=== PATIENT | female | born 1945 | race Caucasian/White ===

== ENCOUNTER 2019-11-03 05:51 | Inpatient (IN) | payer OTHER ==
[2019-11-03] MEDS ORDERED: WELLBUTRIN XL150 MG PO (06:10)
[2019-11-03] MEDS ORDERED: PROAIR HFA8.5 GM INH (06:10)
[2019-11-03] MEDS ORDERED: CLONAZEPAM 0.50.5 M1 PO (06:11)
[2019-11-03] MEDS ORDERED: DILTIAZEM ER120 MG PO (06:12)
[2019-11-03] MEDS ORDERED: NEXIUM40 MG PO (06:12)
[2019-11-03] MEDS ORDERED: LASIX 40 MG TAB40 MG PO (06:13)
[2019-11-03] MEDS ORDERED: FLONASE 0.05%50 MCG NASAL (06:13)
[2019-11-03] MEDS ORDERED: NEURONTIN 300300 M1 PO (06:14)
[2019-11-03] MEDS ORDERED: PROTONIX40 M2 PO (06:17)
[2019-11-03] MEDS ORDERED: ROXICODONE5 M2 PO (06:17)
[2019-11-03] MEDS ORDERED: KLOR-CON 10 ER10 MEQ PO (06:18)
[2019-11-03] MEDS ORDERED: MIRAPEX0.5 MG PO (06:19)
[2019-11-03] MEDS ORDERED: JANUMET XR 1001 EACH PO (06:20)
[2019-11-03] MEDS ORDERED: CARAFATE 1 GM TA1 GM PO (06:21)
[2019-11-03] MEDS ORDERED: RESTORIL15 MG PO (06:21)
[2019-11-03] MEDS ORDERED: ZANAFLEX4 M2 PO (06:22)
[2019-11-03] MEDS ORDERED: ANORO ELLIPTA1 EACH INH (06:23)
[2019-11-03 06:31] VITALS: BP 135/70
--- NOTE | 2019-11-03 07:09 | NUR ---
Patient arrived from [facility] ED via EMS. Patient calm, pleasant and cooperative. Patient had IV to right forearm which was removed. Patient educated and signed consents. Patient denies pain or discomfort. Vital signs assessed and weight checked. Patient gave tour of unit and notified of breakfast time. Patient had slept on and off throughout the night while at the ED so she is resting quietly in bed at this time. Personal belongings inventoried, med rec completed, allergies listed. Patient denies SI/HI/AH/VH. No paranoia or delusional behaviors observed. Patient able to ambulate from [facility] to her bed with steady gait and good balance.
--- NOTE | 2019-11-03 09:00 | NUR ---
Assumed care of patient this am. Patient in good spirits. Patient calm, content and pleasant. Patient denies pain. Patient denies hi/si. Patient ambulates without assistance. Patient takes meds whole with fluids. Patients assessment shows clear breath sounds, active bowel sounds, and s1 s2 heard with auscultation. Will continue to monitor.
[2019-11-03 16:43] LABS: TSH 0.885 uIU/mL (0.358-3.740)
[2019-11-03 19:30] VITALS: BP 111/51
[2019-11-03 23:08] LABS: HIV ANTIBODY Non Reactive (Non Reactive)
--- NOTE | 2019-11-03 23:31 | NUR ---
ASSUMED CARE ON 11/03/19 @ 19:15, IN BED WITH THE LIGHTS OFF. AWAKENED AT SHIFT CHANGE, AND SAID, WHY ARE YOU WAKING ME UP AGAIN? ORIENTED TO THIS NURSE AND TO THIS BEING THE FIRST TIME WE MET, AND THE TIME OF EVENING IT IS, SHE SAID WELL, IM TIRED AND DONT WANT TO BE WOKEN UP AGAIN. ORIENTED TO THE TIME SCHEDULT FOR HS MEDS, SHE RESPONDED IN A CRANKY WAY THAT ALL SHE WANTED TO DO WAS SLEEP. COOPERATED WITH ASSESSMENT AND HS MEDS WITH A GREAT DEAL OF COMPLAINT AND CRANKINESS. DENIES PAIN, HRRR, LUNGS DIMINISHED, ABD NORMOACTIVE REPORTS BM TODAY. IN BED, BED IN LOW POSIITON. WILL CONTINUE TO ROUND Q 12 MINUTES FOR PATIENT SAFETY.
[2019-11-03 23:38] VITALS: BP 111/51
--- NOTE | 2019-11-04 01:57 | NUR ---
PROVIDED PRN TEMAZEPAM 15 FOR INSOMNIA AND ACETAMINOPHEN 650 FOR GENERAL PAIN 02/03 @ 01:50.
--- NOTE | 2019-11-04 05:27 | NUR ---
SLEPT 11.2 HOURS OVERNIGHT
[2019-11-04 09:12] VITALS: BP 129/63
[2019-11-04 10:58] VITALS: BP 129/63
--- NOTE | 2019-11-04 13:23 | NUR ---
PATIENT HAS BEEN UP, AND OUT ON THE, AMBULATES WITH SLOW STEADY GAIT. PATIENT TOOK ALL MEDICATION WHOLE WITHOUT DIFFICULTY. PATIENT IS EATING MEALS, AND DRINKING FLUID WELL. PATIENT DENIES SUICIDAL/HOMICIDAL IDEATION. SHE DENIES AUDITORY/VISUAL HALLUCINATION. PATIENT IS CALM, COOPERATIVE WITH CARE. AFFECT IS DEPRESSED, MOOD IS PLEASANT, SHE DENIES HAVING PHYSICAL PAIN. NO SIGN OF ACUTE DISTRESS NOTED AT THIS TIME, CURRENTLY IN DAY ROOM TAKING OFF/ON NAP, WILL MONITOR FOR SAFETY.
[2019-11-04 20:54] VITALS: BP 149/69
--- NOTE | 2019-11-04 22:46 | NUR ---
ASSUMED CARE OF PATIENT AT 1915, PATIENT WAS IN BED DURING ONE TO ONE WITH THIS NURSE. AT FIRST PATIENT WAS IRRITABLE STATING 'IM TRYING TO SLEEP WHO ARE YOU?' THIS NURSE EXPLAINED WHO I WAS AND PATIENT CALMED AND WAS AGREEABLE. SHE APPEARS DISHEVELED WITH A FLAT AFFECT, SHE WOULD NOT ELABORATE ON FEELINGS EFFECTIVELY, BUT DID ADHERE TO MEDICATION REGIMEN PRESCRIBED. SHE DENIED SI HI FEELINGS OF DEPRESSION ET ANXIETY, HOWEVER AFFECT AND MOOD ARE INCONGRUENT. SHE DENIED MEDICAL CONCERNS WITH NO S/S OF DISTRESS. NURSING WILL MAINTAIN ALL PRECAUTIONS TO ENSURE SAFETY AT ALL TIMES.
[2019-11-05 06:21] LABS: ABSOLUTE NEUTROPHILS 2.9 thou/uL (1.4-8.2); EOSINOPHILS 4.2 % (0.0-3.0); HEMATOCRIT 40.4 % (37.0-47.0); HEMOGLOBIN 13.5 gm/dL (12.0-15.0); LYMPHOCYTES 28.5 % (24.0-44.0); MCH 29.5 pg (26.0-34.0); MCHC 33.4 g/dL (28.0-37.0); MCV 88.3 fL (80.0-100.0); MONOCYTES 6.9 % (1.0-8.0); PLATELET COUNT 168 thou/uL (150-400); POLYS 59.4 % (36.0-66.0); RBC 4.58 mil/uL (4.20-5.00); RDW 13.2 % (10.5-14.5); WBC 4.8 thou/uL (4.0-11.0)
[2019-11-05 07:09] LABS: ALBUMIN 3.6 g/dL (3.4-5.0); CALCIUM 9.2 mg/dL (8.5-10.1); CREATININE 0.8 mg/dL (0.6-1.0); MAGNESIUM 2.2 mg/dL (1.8-2.4); POTASSIUM 4.1 mmol/L (3.5-5.1); TOTAL BILIRUBIN 0.6 mg/dL (<0.1-1.0); TOTAL PROTEIN 7.7 g/dL (6.4-8.2)
[2019-11-05 07:37] VITALS: BP 144/39
--- NOTE | 2019-11-05 18:10 | H ---
[facility] [place] [address] HISTORY AND PHYSICAL Name: JOANNE VALVERDE Room #: 522B-B ADM IN M.R.#: [id number] Admission: 11/03/19 Attend Phys: Duke Foote DO Discharge: Date of : 49 Report #: [id number] THIS REPORT FOR: //name// CC: Duke Foote [facility] unknown DATE OF SERVICE: 11/03/2019 INPATIENT PSYCHIATRIC EVALUATION ATTENDING PHYSICIAN: Duke Foote DO. STRIPPER CUTTER MACHINE: Duke Navarro M.D. REASON FOR ADMISSION: Transfer from [facility], brought there by family due to increased confusion. Family reports that the patient has been not taking her medications and self-care, has declined. SOURCES OF INFORMATION: Hospital records. Interview with the patient and I left a voicemail with her son. HISTORY OF PRESENT ILLNESS: This is a 74-year-old female, BMI 85.774, apparently mildly obese. She presented to [facility] ED by family due to increased confusion, not taking medications, self-care decline. A psychiatric crm system administrator in [place] asked the account underwriter what brought to the ER, she stated "confusing." She denied thoughts of harm to self or others. Denied any history of suicidal attempts or self-harm. Reports losing her in 07/2019 a stressor. She was unable to identify a support system when asked, however, family was observed in the room. None history of psychiatric hospitalizations. PCP is Dr. Amando Gimenez. Denied auditory, visual, or tactile hallucinations. Denied paranoia. In the ER, she was unable to tell the date, vice president financial. Her daughter, Lalita Morris, wrote an affidavit. Her number is [phone]. She was concerned over the patient not showering, changing clothing or taking her medications. Affidavit goes on to say that the patient has a dog that has not been taking care of and has been letting street cats into her home. LABORATORY DATA: From the ER, sodium 137, potassium 3.9, chloride 103, bicarbonate 27, anion gap 7, calcium 8.9, glucose 159, total serum protein 7.3, albumin 3.9, alkaline phosphatase 82, alanine aminotransferase 23, aspartate aminotransferase 27, total bilirubin 0.4, BUN 24, creatinine 0.8, GFR female non- 71. White count 6.00, H and H 12.9 and 36, and platelet count 165. Urinalysis was grossly negative. ADDITIONAL INFORMATION: Daughter is a nurse practitioner at [employer] [facility] [employer] informs me the patient has gotten progressively worse after her , stopped [address] [address] HISTORY AND PHYSICAL Name: JOANNE VALVERDE Room #: 522B-B ADM IN M.R.#: [id number] Admission: 11/03/19 Attend Phys: Duke Foote DO Discharge: Date of : 49 Report #: [id number] taking care of herself and able to no longer care for her. She refuses to shower. She is not even feeding her own dog. The patient told the ER doc that it was 1972 and Samm was president. Interestingly, she told me the year was 1986. PAST MEDICAL HISTORY: Includes heart failure with preserved ejection fraction, acute respiratory failure from 11/2016 and 01/2019, aortic regurgitation 06/2018, cardiac pacemaker in situ 03/2009, combined heart failure 01/2017, chronic respiratory failure with hypercapnia 02/01/2019, cognitive impairment 12/2017, chronic obstructive lung disease 04/03/2014, complete heart block 2008 status post pacemaker, coronavirus infection 11/2016, diabetes mellitus type 2 in 08/2019, diabetic neuropathy with type 2 diabetes 12/2017, diverticulitis of large intestine 03/2014, elevated liver function tests 01/2019, GERD 01/2019, pulmonary embolism 2007, hypertrophic cardiomyopathy status post septal myectomy, imbalance 12/2017, mitral regurgitation 06/2018, nonalcoholic fatty liver disease 04/2016, restless leg syndrome 04/2016, RSV 11/2016, slow transit constipation 11/2016, diabetes mellitus 06/2005. PAST SURGICAL HISTORY: Knee arthroscopy, cardiac catheterization, cardiac pacemaker placement, CVL IVC filter placement and a venous ablation, insertion of pacemaker, septal myectomy, right 03/2013; rotator cuff repair, total hip replacement, and tubal ligation. FAMILY HISTORY: Coronary artery disease in mother, reports at age 55 colon cancer in mother, gallbladder disease in sister, diabetes mellitus in sister. SOCIAL HISTORY: Smoking status, 1 pack per day, years 57, [id number] smoker, start date 12/30/1965, quit date 11/2016. CT of the head was done, no acute intracranial process. It looks like B12, TSH, folate were not tested. REVIEW OF SYSTEMS: From visiting with the patient, she denied pain, nausea, vomiting or diarrhea. Otherwise, brief 10-point review of systems is negative. PHYSICAL EXAMINATION: GENERAL: In hospital gown, kyphotic, normal gait. MENTAL STATUS: This is a well-developed, ill-appearing female appearing older than stated age. Attention limited. Concentration limited. Speech is normal rate. Thought process linear and goal directed. Thought content, relative poverty of thought. No psychomotor agitation. No psychomotor retardation. Denied SI or HI. Denied auditory, visual, or tactile hallucinations. Memory tested with a [facility] Mental Status Examination, the patient scored 10/30 with gross amnestic deficits, interesting Geriatric Depression Scale 15 question Short form was done, it was 0 which is the best score can be. Insight impaired, judgment impaired. Fund of knowledge well below average. [facility] [address] [place] [address] HISTORY AND PHYSICAL Name: CANDELARIA VALVERDEEN Room #: 522B-B ADM IN ..#: [id number] Admission: 11/03/19 Attend Phys: Duke Foote DO Discharge: Date of : 49 Report #: [id number] FORMULATION: A 74-year-old obese female coming in for altered mental status. Initial tests look like this is a major neurocognitive disorder. DIAGNOSES: At this time, major neurocognitive disorder, likely Alzheimer's disease, possible vascular component with behavioral disturbance. Bereavement. Numerous medical problems including diabetes mellitus, hypertension, history of heart block, history of hypertrophic cardiomyopathy status post septal myectomy. PLAN: Evaluate, stabilize, obtain collateral. With regards to the patient's medications, potassium chloride 10 mEq p.o. daily ordered, Flonase 2 sprays each nostril daily ordered, diltiazem 120 mg p.o. daily ordered, tizanidine 4 mg p.o. b.i.d. ordered for muscle relaxation, gabapentin 300 mg p.o. b.i.d. ordered for neuropathy, sleep temazepam 15 mg ordered at bedtime, Mirapex 0.5 mg p.o. 3 times a day ordered. Other house PRNs. ESTIMATED LENGTH OF STAY: 10-14 days. Voicemail left for son, have not gotten additional collateral. STRENGTHS: She is insured, has supportive family. WEAKNESSES: Advancing age, likely an advanced dementia. <ELECTRONICALLY SIGNED> By: Duke Foote DO 11/05/19 1810 [id number] Duke Foote DO /nt
--- NOTE | 2019-11-05 18:23 | NUR ---
0715 ASSUMED CARE OF PATIENT. PATIENT IN BAD AT THIS TIME. 0820 MEDICATION TAKEN WHOLE WITHOUT DIFFICULTY. DENIES PAIN OR NEEDS AT THIS TIME. 1000 PATIENT IN ROOM SITTING ON BED. NO C/O PAIN, LUNG SOUNDS CLEAR, BS X4. PATIENT STATES WILL TAKE SHOWER LATER. DENIES SI/HI AND AUDIO AND VISUAL HALLUCINATIONS. PATIENT AMBULATING IN [place]ANA WITH STEADY GAIT. 1800 PATIENT IN SHOWER WITH ASSISTANCE OF NURSE PLASTICS
[2019-11-05 19:56] VITALS: BP 126/57
--- NOTE | 2019-11-05 21:22 | NUR ---
ASSUMED CARE AT 1915, PATIENT IN BED UPON ONE TO ONE WITH MEDICATION ADMINISTRATION, PATIENT ALERT AND ORIENTED X3 UPON ASSESSMENT. AGAIN, SHE WAS IRRITALBE UPON INITIAL ASSESSMENT, BUT CONVERSATION PROGRESSED SHE APPEARED WITH A BRIGHTER AFFECT. THIS NURSE EXPLAINED MEDICATION REGIMEN AND NEED FOR LOVENOX THERAPY TO WHICH PT STATED 'I USE TO TO HAVE TO TAKE THIS AT HOME.' SHE REPORTS FEELING 'GOOD' BUT 'BORED BECAUSE THERE IS NOTHING TO DO.' SHE DENIES SI HI SH WELL HALLUCINATIONS. SHE DENIED MEDICAL CONCERNS, INCLUDING PAIN AND DOES NOT APPEAR TO BE IN DISTRESS. THIS NURSE ENCOURAGED REGULAR MOVEMENT THROUGH UNIT AND PARTICIPATION. NURSING WILL MAINTAIN ALL PRECAUTIONS TO ENSURE SAFETY AT ALL TIMES.
--- NOTE | 2019-11-06 03:27 | NUR ---
PATIENT AWOKE AND CAME TO NURSE'S STATION AT 0300. SHE QUICKLY SAID SHE NEEDED SOME TOWELS BECAUSE SHE WAS GOING TO TAKE A SHOWER. I EXPLAINED THAT IT WAS 3AM. SHE STATES SHE COULDN'T SLEEP SO THOUGHT SHE WOULD GET UP. I SENT HER BACK TO HER ROOM AND TOLD HER I WOULD BE THERE IN A MINUTE. I WENT AND TOOK TOWELS AND WASH CLOTH TO HER ROOM. SHE WAS SITTING ON THE BED AND ASKED WHAT TIME IT WAS AGAIN. I TOLD HER THE TIME AND SHE DECIDED THAT SHE SHOULD SKIP THE SHOWER AND TRY AND SLEEP BUT SHE WANTED SOMETHING TO HELP HER SLEEP. THOUGH LATE, I WENT AHEAD AND GAVE HER THE PRN ORDER FOR TEMAZEPAM. PT TOOK MED AND THEN WE TALKED FOR A BIT. SHE IS PLEASANT AND COOPERATIVE AND SMILING APPROPRIATELY AT THINGS WE TALK ABOUT. SHE DISCUSSED HER GRIEF OF HER DYING BESIDE HER IN BED FROM A MASSIVE HEART ATTACK. SHE TALKED ABOUT THE EMS WORKERS COMING AND DOING CPR. SHE FEELS HER KIDS ARE BEING TOO OVERPROTECTIVE AND SAYS SHE IS JUST GRIEVING AND DEPRESSED AT TIMES D/T THE LOSS OF HER BUT NOTHING THAT ISN'T EXPECTED. SHE IS WANTING TO GO BACK TO HER HOME AND LIVE BY HERSELF BUT KIDS ARE WANTING HER TO LIVE WITH ONE OF THEM. SHE DID LAY DOWN. SHE IS RESTING NOW. SHE DENIES SI/HI. WILL CONTINUE TO MONITOR.
--- NOTE | 2019-11-06 05:02 | NUR ---
PATIENT AWOKE AND CAME TO NURSE STATION. SHE IS WIDE AWAKE. SHE SLEPT FOR 2 HOURS AFTER HAVING TEMAZEPAM. GAIT IS STEADY. PATIENT STATING SHE WOULD LIKE TO TAKE A SHOWER. PATIENT IS TAKING SHOWER AT THIS TIME AND WASHING HER HAIR. STATES SHE CAN'T SLEEP ANYMORE. MONITORING HER FOR SAFETY.
--- NOTE | 2019-11-06 07:30 | NUR ---
Assumed care of patient this am. Patient in good spirits, calm and cooperative. Patients affect flat. Patient ambulates with walker. Patient takes medications whole with fluids. Patient denies hi/si. Patient concerned about going home. Patients assessment shows clear breath sounds, active bowel sounds, and s1 s2 heard with auscultation.
[2019-11-06 08:00] VITALS: BP 118/65
[2019-11-06 09:04] VITALS: BP 118/65
--- NOTE | 2019-11-06 11:18 | NUR ---
BHAVIN confirmed that Eduardo and his sister Lalita will be attending pt's family meeting tomorrow.
[2019-11-06 16:07] LABS: SYPHILIS AB Non Reactive (Non Reactive)
[2019-11-06 20:15] VITALS: BP 131/67
[2019-11-06 21:30] VITALS: BP 131/67
--- NOTE | 2019-11-07 05:28 | NUR ---
11/06/19 @ 2130 Pt. is alert and oriented x 4. Affect bright. Patient is calm and cooperative. No SI/HI/AH/VH reported. No s/s of delusional or paranoid behaviors. Meds taken whole with thin liquids. No choking or coughing noted with thin liquids. Pt. denies pain and no s/s of distress noted.
[2019-11-07 07:35] VITALS: BP 127/64
--- NOTE | 2019-11-07 16:25 | NUR ---
SW attended a family meeting with pt's daughter Lalita, psych doctor and pt. Placement options were discussed; although pt does not want to go to placement she understands that it may be necessary; it also may be a short term placement as her cognition issues may have been brought on by grief. SW team will continue to follow pt during her stay on this unit.
--- NOTE | 2019-11-07 17:47 | NUR ---
BHAVIN received a VM from [email or web address] and theya re asking that a DPOA be established and faxed to them. BHAVIN reported this to the SW team to be completed in my absence tomorrow 11/08
[2019-11-07 20:00] VITALS: BP 159/81
--- NOTE | 2019-11-07 20:19 | NUR ---
Alert and orientated X4. Conversive with peers and staff. Denies SI/HI, pain. Breath sounds clear t/o. Reg HR auscultated. Color pink with brisk capillary refill and palpable peripheral pulses. Independent with voiding. Active bowel sounds over large, soft, rounded abdomen. [place], healing area under L breast. Red, excoriated areas under stomach fold and groin. Dr. Kinney here examining pt. Ketaconazole cream ordered to groin and stomach in addition to breast.
--- NOTE | 2019-11-07 23:48 | NUR ---
ASSUMED CARE ON 11/07/19 @ 19:20, IN THE DAY ROOM, SOCIALIZING WITH PEERS. REPORTS THAT DOES NOT TO TAKE TRAZADONE FOR SLEEP SHE HAD VISUAL HALLUCINATIONS OF BUGS LAST NOC WHEN SHE TOOK IT. DENIES AH AND VH TODAY, DENIES SI AND HI. COOPERATED WITH ASSESSMENT, HRRR, LUNGS CTA, ABD N X 4 Q OVER A ROUND ABDOMEN. REPORTS PAIN IN THE NECK, WELL THE BREAST AND THIGHS. REFUSED TYLENOL 650. ORDER OBTAINED FOR IBU 400 FOR A ONE TIME ORDER. PROVIDED FOR 5/10 PAIN IN THE NECK. KETACONAZOLE CREAM APPLIED TO BREAST, GROIN AND ABD FOLD FOR REDNESS. RELIEF NOTED PATIENT IS SLEEPING UPON FOLLOW UP ASSESSMENT. BED IN LOW POSITION, WILL CONTINUE TO MONITOR Q 12 MINUTES FOR PATIENT SAFETY.
[2019-11-08 02:32] VITALS: BP 159/81
--- NOTE | 2019-11-08 06:03 | NUR ---
slept 6 hours overnight
--- NOTE | 2019-11-08 07:30 | NUR ---
Assumed care of patient this am. Patient in good spirits. Patient has a broad affect. Patient takes medications whole with fluids. Patient ambulates with walker. Patient denies hi/si. Patient denies pain. Patients assessment shows clear breath sounds, active bowel sounds, and s1 s2 heard with auscultation.
[2019-11-08 08:00] VITALS: BP 143/67
[2019-11-08 09:02] VITALS: BP 143/67
--- NOTE | 2019-11-08 11:34 | NUR ---
BHAVIN and the industrial controls technician completed an advanced directive with pt. She has designated her son Eduardo as #1 and daughter Lalita as #2. SW team will continue to follow pt during her stay on this unit.
--- NOTE | 2019-11-08 14:49 | NUR ---
SW received a msg from [facility] stating that they cannot take pt due to her insurance being out of network. SW provided an update to pt's psych doctor who then called pt's son and daughter. SW team will continue to follow pt during her stay on this unit.
[2019-11-08 19:47] VITALS: BP 135/69
[2019-11-08 22:06] VITALS: BP 135/69
--- NOTE | 2019-11-09 02:42 | NUR ---
1430 AM RESUMMED CARE FROM DAY SHIFT, PATIENT IN DAY ROOM INTERACTING WITH PATIENTS. PATIENT CALM COOPERATIVE TOOK MEDICATION WITHOUT INCIDENCE. PATIENT DENIES SI/HI NO HALLUCINATIONS AT PRESENT. WILL CONTINUE TO MONITOR PATIENT FOR SAFETY AND BEHAVIORS.
[2019-11-09 08:00] VITALS: BP 137/67
--- NOTE | 2019-11-09 09:56 | NUR ---
BHAVIN spoke with Lalita [phone]. And she asked to send the referral to [facility] ( they do not have any beds unitl next week). Bhavin sent the referal to [facility]. Still waiting for pt and ot notes
--- NOTE | 2019-11-09 11:14 | NUR ---
[facility] is working getting auth and are waiting for pt and ot notes. They asked for DX codes for rehab. Sw will communicate with therapy and get those as needed. If auth is completed pt could d/c to [facility] for rehab by tomorrow.
--- NOTE | 2019-11-09 11:22 | EKG ---
[facility] [place] [address] ELECTROCARDIOGRAM REPORT Name: JOANNE VALVERDE Room #: 520A-A ADM IN M.R.#: [id number] Admission: 11/03/19 Attend Phys: Duke Foote DO Discharge: Date of : 49 Report #: [id number] THIS REPORT FOR: cc: FAM - Family physician unknown FAM - Family physician unknown Paul Nash MD ~ THIS REPORT FOR: //name// [facility] Test Date: 2019-11-06 Test Time: 11:10:26 Pat Name: JAONNE VALVERDE Department: Room: [facility] B Gender: F Systems Test Analyst: Fabrice ROSEN : 1945 Requested By: Duke Fooet Order Number: [id number] MD: Paul Nash Measurements Intervals [place]or Rate: 71 P: 66 ND: 171 QRS: -67 QRSD: 149 T: 124 QT: 462 QTc: 503 Interpretive Statements Atrial-ventricular dual-paced rhythm No further analysis attempted due to paced rhythm No previous ECG available for comparison Electronically Signed On 11-06-2019 16:52:57 CORRUGATOR by Paul Nash [email or web address] <ELECTRONICALLY SIGNED> By: Paul Nash MD 11/06/19 1652 1110 1110 Paul Nash MD /EPI
[2019-11-09 13:16] VITALS: BP 137/67
--- NOTE | 2019-11-09 15:47 | NUR ---
Sw spoke with pt's brother and reported the d/c planning efforts. SW waiting for pt/ot notes to complete the referral.
[2019-11-09 19:30] VITALS: BP 146/59
--- NOTE | 2019-11-09 19:31 | NUR ---
Assumed care of patient this am. Patient in good spirits. Patient denies pain. Patient denies hi/si. Patients affect is soft and normal. Patient ambulates without assistance. Patient takes medications whole. Patients assessment shows clear breath sounds, active bowel sounds, and s1 s2 heard with auscultation. Patient states that she is afraid of one of the male patients. We will continue to monitor.
--- NOTE | 2019-11-10 01:03 | NUR ---
Care assumed of patient at 1915: Patient seated in dayroom at start of shift. Patient alert and oriented x3, disoriented on current situation. Patient did state that she is waiting to be discharged to a [facility] facility for rehab. Patient also reporting that she has quit smoking and is proud about that. Patient calm, pleasant and cooperative. Denies pain or discomfort. Denies SI/HI/AH/VH. No delusional or paranoia behaviors observed. Denies anxiety and depression. Patient took HS medication whole without difficulty. Originally declined HS snack and reported that she wanted to retire to bed. However, patient presented to the nurses station later and reported that her blood sugar was "dropping again". Blood sugar assessed, WNL. Patient was provided zoe crackers per her request and ate 100%. Medical record reviewed and discrepancy noted in blood sugars being monitored. TIFFANIE Guy notified. Orders obtained for Accucheck ACHS, Hypoglycemic protocol and Hgb A1C for the AM. Patient has been able to rest quietly since receiving HS snack.
[2019-11-10 08:42] VITALS: BP 137/67
--- NOTE | 2019-11-10 11:34 | NUR ---
OBSERVED TO BE CARETAKING OF PEER GROUP-FEEDING OTHER PATIENTS,ATTEMPTING TO REASSURE A FEMALE ON UNIT CRISTIAN IS MISSING HER ,TELLING ANOTHER PEER "STOP YPUR WHINING NO ONE WANTS TO HEAR THAT" DYSPHORIC MOOD. DENIES SI/SH/HI. DENIES C/O PHYSICAL DISCOMFORT. GAIT STEADY WITHOUT ASSISTIVE DEVICES.
--- NOTE | 2019-11-10 14:24 | NUR ---
BHAVIN got an update from [facility] and pt has been accepted for skilled days. Bhavin then speokw with Lalita mary anne ahumadazulma sated that her brother was going to pick pt up and take her to [facility] for rehab. Bhavin spoke with [facility] and confirmed. Bhavin made packet and sent meds list included DA 124 C and DPOA with d/c summary and orders FAXED.
[2019-11-10] MEDS ORDERED: IPRAT-ALBUT 0.5-3 ML INH (14:39)
[2019-11-10] MEDS ORDERED: CLONAZEPAM 0.50.5 M1 PO (14:40)
[2019-11-10] MEDS ORDERED: VITAMIN D21250 MC1 PO (14:41)
[2019-11-10] MEDS ORDERED: ZOLOFT25 MG PO (14:41)
[2019-11-10] MEDS ORDERED: KETOCONAZOLE15 GM TOP (14:41)
[2019-11-10] MEDS ORDERED: PROTONIX40 M1 PO (14:42)
[2019-11-10] MEDS ORDERED: GLUCOPHAGE500 MG PO (14:42)
[2019-11-10] MEDS ORDERED: CARAFATE 1 GM TA1 GM PO (14:42)
[2019-11-10] MEDS ORDERED: MIRALAX17 GM PO (14:42)
[2019-11-10] MEDS ORDERED: MILK OF MA2400 MG/11 PO (14:43)
--- NOTE | 2019-11-10 15:13 | NUR ---
REPORT CALLED TO SRAVANTHI AT [facility] AT APPROX 1400-DISCHARGE INSTRUCTIONS REVIEWED WITH PATIENT AND SON AND COPIES OF DC MEDS AND INSTRUCTIONS ALONG WITH RX IN PACKET AND SENT TO FACILITY. DISCHARGED WITH PERSONAL BELONGINGS ACCOMPNIED BY SON BHARAT TO PRIVATE VEHICLE. UP IN MOOD AT TIME OF DC SMILING AND STATING SHE IS EXCITED TO SEE HER DOG. DENIES ACUTE ANXIETY/SI/SH/HI AT TIME OF DC. NO NOTED OR REPORTED PSYCHOSIS.
[2019-11-13 01:10] LABS: GLYCOHEMOGLOBIN (HGB A1C) 5.8 % (4.8-5.6)
== END 2019-11-10 15:21 | DRG 884 ==
LOC: SBH 05:51
PROVIDERS: Internal Medicine; Nurse Practitioner Family; ADMIT Psychiatry & Neurology Psychiatry
DX: F01.50 Vascular dementia, unspecified severity, without behavioral disturbance, psychotic disturbance, mood disturbance, and anxiety (principal); J96.12 Chronic respiratory failure with hypercapnia; I11.0 Hypertensive heart disease with heart failure; I42.2 Other hypertrophic cardiomyopathy; Z68.45 Body mass index [BMI] 70 or greater, adult; I50.42 Chronic combined systolic (congestive) and diastolic (congestive) heart failure; E66.9 Obesity, unspecified; F39 Unspecified mood [affective] disorder; J44.9 Chronic obstructive pulmonary disease, unspecified; F31.9 Bipolar disorder, unspecified; I35.1 Nonrheumatic aortic (valve) insufficiency; E55.9 Vitamin D deficiency, unspecified; Z96.649 Presence of unspecified artificial hip joint; K76.0 Fatty (change of) liver, not elsewhere classified; G25.81 Restless legs syndrome; E11.40 Type 2 diabetes mellitus with diabetic neuropathy, unspecified; K21.9 Gastro-esophageal reflux disease without esophagitis; Z86.711 Personal history of pulmonary embolism; Z95.0 Presence of cardiac pacemaker; Z87.891 Personal history of nicotine dependence; Z88.1 Allergy status to other antibiotic agents; Z88.8 Allergy status to other drugs, medicaments and biological substances; Z79.899 Other long term (current) drug therapy; Z79.51 Long term (current) use of inhaled steroids; Z82.49 Family history of ischemic heart disease and other diseases of the circulatory system; Z83.79 Family history of other diseases of the digestive system; Z83.3 Family history of diabetes mellitus; Z80.0 Family history of malignant neoplasm of digestive organs
CPT/HCPCS: 10880